=== PATIENT | female | born 2000 | race Caucasian/White ===

== ENCOUNTER 2019-01-23 01:33 | Emergency (ER) | payer BC, MEDICAID ==
[~2019-01-23] VITALS: Ht 152.4 cm; Wt 55.4 kg
[2019-01-23 01:37] VITALS: Ht 152.4 cm; Wt 55.4 kg
--- NOTE | 2019-01-23 03:39 | ERD ---
ER Documentation Chief Complaint Chief Complaint Pt reports she was hit with a volleyball in the head yesterday HPI 18-year-old female, presents the emergency department, complaining of headache after being hit with a volleyball in the head yesterday. No loss of consciousness, no amnesia of the event. The patient refers feeling dizzy and tired but denies nausea, vomiting, no blurred vision. ROS All systems reviewed and are negative except as per history of present illness. Medications Home Meds Active Scripts Ibuprofen* (Motrin*) 600 Mg Tab, 600 MG PO Q8, #15 TAB Prov:FLOWER MYRICK MD 01/23/19 Allergies Allergies: Coded Allergies: Penicillins (Verified Allergy, Unknown, 12/07/14) PMhx/Soc Medical and Surgical Hx: pt denies Medical Hx, pt denies Surgical Hx Hx Alcohol Use: No Hx Substance Use: No Hx Tobacco Use: No FmHx Family History: No diabetes, No coronary disease Physical Exam Vitals Vital Signs Date Temp Pulse Resp B/P (MAP) Pulse Ox O2 O2 Flow FiO2 Time Delivery Rate 01/23/19 98.3 64 18 103/65 100 Room Air 04:48 (78) 01/23/19 97.1 75 16 128/88 100 01:37 (101) Physical Exam Const: No acute distress Head: Atraumatic Eyes: Normal Conjunctiva ENT: Normal External Ears, Nose and Mouth. Neck: Full range of motion. No meningismus. Resp: Clear to auscultation bilaterally Cardio: Regular rate and rhythm, no murmurs Abd: Soft, non tender, non distended. Normal bowel sounds Skin: No petechiae or rashes Back: No midline or flank tenderness Ext: No cyanosis, or edema Neur: Awake and alert Psych: Normal Mood and Affect Results 24 hrs Laboratory Tests Test 01/23/19 04:05 POC Beta HCG, Qualitative NEGATIVE DIAGNOSTIC IMAGING REPORT Patient: MARTIN FOREMAN : 2000 Age: 18 Sex: F [id number] [id number] DOS: 01/23/19 0344 Ordering MD: FLOWER MYRICK MD Location: [facility] Room/Bed: PROCEDURE: CT Brain without contrast. CLINICAL INDICATION: Trauma. Headache. TECHNIQUE: CT scan of the brain was performed on a multidetector high- resolution CT scan. Axial imaging was obtained of the brain without contrast administration. Coronal and sagittal reformatted images were obtained from the axial source images. Standard CT scan of the head without contrast protocols were performed. The total exam CTDI equals 39.64 mGy and the total exam DLP equals 634.23 mGy- cm. One or more of the following dose reduction techniques were used: - Automated exposure control. - Adjustment of the mA and/or kV according to patient size. Use of iterative reconstruction technique. Dicom images are available COMPARISON: None. FINDINGS: The ventricular system and peripheral CSF spaces are unremarkable. No evidence of intracranial masses hemorrhages or midline shift. De Leon-white matter differentiation is unremarkable. The bones of the calvarium are intact. Minimal chronic bilateral maxillary sinus disease. Remainder the visualized paranasal sinuses and mastoids are unremarkable. IMPRESSION: No evidence of intracranial masses hemorrhages or midline shift. RPTAT:AAJJ Physician Micaela Date Time Electronically viewed and signed by Physician Micaela on 01/23/2019 04:11 BM/ CC: FLOWER MYRICK MD [id number] Procedures/MDM Vital signs stable. Differential diagnosis include but not limited to: Head concussion, contusion, skull fracture, vertebral fracture, intracranial hemorrhage. Physical examination and clinical presentation consistent most likely with head concussion. During the ED course the patient remained stable, no new complaints. The patient was instructed to follow up with the primary care provider in the next 48h. If symptoms persist, worsen or new symptoms develop like nausea, vomiting, behavioral changes, and lethargy, then patient should return to the ED immediately. Instructions explained and given directly by me to the mother with acknowledgment and demonstrated understanding. Disclaimer: Inadvertent spelling and grammatical errors are likely due to EHR/dictation software use and do not reflect on the overall quality of patient care. Also, please note that the electronic time recorded on this note does not necessarily reflect the actual time of the patient encounter. Departure Diagnosis: Primary Impression: Head injury, closed, with concussion Condition: Stable Additional Instructions: Thank you very much for allowing us to participate in your care. Your health and safety is our top priority at [facility]. Call your primary care doctor TOMORROW for an appointment during the next 2-4 days and bring all the information and medications prescribed. Have prescriptions filled and follow precisely the directions on the label. If the symptoms get worse and your provider is unavailable, return to the Emergency Department immediately. FLOWER MYRICK MD Jan 23, 2019 03:39
[2019-01-23] MEDS ORDERED: IBUP-1542 PO (04:35)
[2019-01-23 04:48] VITALS: BP 103/65; PULSE 64; RESP 18
== END 2019-01-23 04:50 | disposition home or self-care (01) ==
LOC: FTE 01:33
DX: S06.0X0A Concussion without loss of consciousness, initial encounter (principal); W21.06XA Struck by volleyball, initial encounter; Y92.9 Unspecified place or not applicable
CPT/HCPCS: 70450; 81025; Z7502